=== PATIENT | male | born 1960 | race Caucasian/White ===

== ENCOUNTER → 2018-09-25 | Outpatient (CLI) | payer BC ==
[~2018-09-25] VITALS: Ht 177.8 cm; Wt 95.3 kg
[~2018-09-25] MED LIST: AMARYL1 MG PO; FENOFIBRATE160 MG PO; METFORMIN HCL500 MG PO; TRULICITY1.5 MG/0.5 SUBQ; ZOCOR20 MG PO
[2018-09-25 13:37] VITALS: BP 137/72
--- NOTE | 2018-09-25 13:41 | NUR ---
Pain Clinic Assessment: 1. History of Osteoarthritis: History of Rheumatoid Arthritis: 2. Height: 5 ft. 10 in. 177.8 cm. Weight: 210.0 lb. oz. 95.256 kg. Patient's BMI: 30.1 3. Vital Signs: BP: 137/72 Pulse: 88 Resp: 15 Temp: 02 Sat: 95 ECG Mon: 4. Pain Intensity: 5 5. Fall Risk: Dizziness: N Needs help standing or walking: N Fallen in the last 3 months: N Fall risk comments: 6. Patient on Blood Thinner: None 7. History of Hypertension: N 8. Opioid Therapy greater than 6 weeks: N Opiate Contract Signed: 9. Risk Assessment Tool Provided: 10. Functional Assessment Tool: 11. Recreational Drug Use: Never Drug Type: Tobacco Use: Former Smoker Tobacco Type: Amount or Packs/day: How Many Years: Alcohol Use: Yes Frequency: Weekly Quant: 3 A WEEK
--- NOTE | 2018-10-02 07:34 | HPC ---
[facility] [place] [address] PAIN MANAGEMENT CONSULTATION Name: MELISSA VANCE [facility] #[facility] [id number] Admission: 09/25/18 ������������������ Attend Phys: Varun Brown DO Discharge: ������������������ Date of : 60 Report #: [id number] THIS REPORT FOR: //name// CC: FAM unknown ABHISHEK Brown DATE OF SERVICE: 09/25/2018 CHIEF COMPLAINT: Neck pain, right upper extremity pain with paresthesias. HISTORY OF PRESENT ILLNESS: As you know, the patient is a pleasant 58-year-old male who reports a longstanding history of neck pain, right upper extremity pain with paresthesias. He states his pain began somewhere in 01/2018. 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 He notes pain intensified with painting and certain manual labor activities. The patient originally "just put up with." Unfortunately, his symptoms continued to progress. He sought evaluation through his PCP who referred the patient to Physical Therapy. He has done 6 weeks of physical therapy reporting minimal improvement in symptoms. Due to lack of improvement with conservative measures, the patient was subsequently referred for MRI of the cervical spine, which showed significant changes at multiple levels with [id number] central canal stenosis present at C3-C4, C5-C6, and C6-C7 with grade A spinal stenosis at the C6-C7 level causing impingement of the nerve roots noted on imaging. Due to these findings, the patient was then referred to our clinic to discuss treatment options. The patient indicates pain is periodic. He describes the pain as sharp with numbness and tingling radiating into the fourth and fifth digits on the right hand as well as the medial aspect of the right hand. He states pain today at level of 5/10, daily average anywhere from 2-5/10, worst pain has been is 7/10. The patient states that "sleeping the wrong way," bending the wrong way or lifting exacerbates symptoms; rest, relaxation tends to improve pain. He has been referred to our service to discuss treatment options for suspected cervical radiculopathy secondary to multilevel cervical spinal stenosis. PAST MEDICAL HISTORY: 1. Diabetes mellitus type 2. 2. Chronic colon problems. 3. Degenerative joint disease. 4. Osteoarthritis. 5. Dyslipidemia. PAST SURGICAL HISTORY: [facility] [address] [place] [address] PAIN MANAGEMENT CONSULTATION Name: MELISSA VANCE Room #: REG [facility] Jaime#: [id number] Admission: 09/25/18 ������������������ Attend Phys: Varun Brown DO Discharge: ������������������ Date of : 60 Report #: [id number] 1. Abdominal herniorrhaphy. 2. Lumbar spine surgery. SOCIAL HISTORY: The patient denies tobacco, IV or illicit drug use. Admits to approximately 3 alcoholic beverages per week. He is employed as a industrial spray painter and maintenance professional. He is working, not receiving workmen's compensation nor is he trying to obtain disability benefits. He is not in litigation in regards to pain. He is unaccompanied at today's visit. REVIEW OF SYSTEMS: Positive for frequent and recurrent coughs, nocturia, sexual difficulty, non-insulin dependent diabetes, neck pain, right upper extremity pain and paresthesias, dyslipidemia. All other review of systems negative per 12-point review of systems other than those listed in history of present illness. Pain impact score 7/70 indicating mild interference of daily activities secondary to pain. ALLERGIES: PENICILLIN. CURRENT MEDICATIONS: Trulicity 1.5 mg subcutaneous once a week, fenofibrate 160 mg once a day, Amaryl 1 mg twice a day, simvastatin 20 mg once a day, metformin 500 mg twice a day. IMAGING: MRI of the cervical spine obtained on 08/22/2018 shows C2-C3 with left-sided hypertrophic degenerative changes, small posterior disk bulge with mild effacement of the ventral thecal sac, AP measuring of the canal 11 mm, left-sided neural foraminal stenosis. C3-C4 disk space narrowing, circumferential disk bulge, effacement of the ventral thecal sac, dimension of the central canal moderately reduced to 8 mm, mild bilateral facet hypertrophy, left-sided neural foraminal narrowing effacing the exiting left C4 nerve root. C4-C5, small disk protrusion, AP diameter canal 9 mm, mild bilateral facet arthropathy, no neural foraminal stenoses. C5-C6, circumferential disk bulge paracentric to the right, mild flattening of the spinal cord, AP diameter of the canal now measuring 8 mm, bilateral neural foraminal narrowing, effacement of the C6 nerve roots right greater than left, mild hypertrophy of the facet joints. C6-C7, circumferential disk bulge, posterior disk osteophyte complex bulging paracentric to right, flattening of the cord, narrowing of the central canal to 7.5 mm, severe bilateral neural foraminal narrowing right greater than left with effacement of the C7 nerve root. C7-T1, minimal shallow disk bulge, effacement of the ventral thecal sac, bilateral neural foraminal narrowing slightly greater on the right, very subtle effacement of the C8 nerve roots. Upper thoracic canal appears unremarkable. PHYSICAL EXAMINATION: VITAL SIGNS: Blood pressure 137/72, pulse 88, respiratory rate [address] [address] PAIN MANAGEMENT CONSULTATION Name: MELISSA VANCE Room #: REG [facility]#: [id number] Admission: 09/25/18 ������������������ Attend Phys: Varun Brown DO Discharge: ������������������ Date of : 60 Report #: [id number] unlabored. The patient is 95% on room air. Height 5 feet 10 inches tall, weight 210 pounds, BMI calculated 30.1. GENERAL: Well-developed, well-nourished, well-hydrated 58-year-old male appearing his stated age. He is in no acute distress, awake, alert and oriented x 3. Current pain score 5/10. HEENT: Normocephalic, atraumatic. Pupils equal, round, reactive to light. Extraocular muscles are intact. Sclerae nonicteric without injection. NEUROLOGIC: Cranial nerves 2 through 12 grossly intact. Speech is fluent. The patient deemed an excellent historian. LUNGS: Clear. No wheeze, rhonchi or rales. CARDIOVASCULAR: Regular. No appreciable gallop, no rub. ABDOMEN: Soft, nontender. EXTREMITIES: Show no clubbing, no cyanosis, no edema. MUSCULOSKELETAL: Upper extremity strength appears equal and symmetrical 5/5. He is intact to light touch from C5 through T1 dermatomes. Deep tendon reflexes are 2+/4 at biceps, brachioradialis and triceps. Muscle bulk and tone equal and symmetrical in upper extremities. Spurling's test positive right, negative left. Cervical provocation testing is met with increasing pain with rotation, lateral flexion to the right with mild restriction of motion secondary to pain. ASSESSMENT: 1. Cervical radiculopathy. 2. Severe spinal stenosis of lumbar spine. 3. Displacement of a cervical intervertebral disk with radiculopathy. 4. Cervical spondylosis with radiculopathy. 4. Cervical degeneration. 5. Chronic intractable pain. PLAN: 1. Based on today's physical exam and history the patient provides, the description the patient uses in regards to pain as well as location of symptoms and the provocating factors, likely source of the patient's pain is cervical radiculopathy. We have discussed with the patient treatment options for cervical radicular symptoms in relationship to his recent MRI findings showing significant central canal stenosis and multilevel neural foraminal narrowing. Following was discussed with the patient today. We discussed physical therapy, stretching exercises and traction techniques as a treatment option. I understand the patient has had physical therapy for 6 weeks, but apparently they have had no traction during the physical therapy, so this could be reinitiated. We discussed medication management, adding neuropathic pain medications to address pain concerns. We also discussed cervical epidural injections under fluoroscopic guidance as a treatment option. We discussed ultimately the surgical decompression of the central canal and neural foramina as necessary. After reviewing the risks and benefits of all the proposed treatment options, the patient has requested to begin with a cervical [address] [address] PAIN MANAGEMENT CONSULTATION Name: RAJIVMELISSA Room #: REG JERSON Jaime#: [id number] Admission: 09/25/18 ������������������ Attend Phys: Varun Brown DO Discharge: ������������������ Date of : 60 Report #: [id number] epidural injection. 2. The patient has requested that he have a visit to return to undergo the cervical epidural injection in the very near future. He is unable to undergo the procedure today due to scheduling conflicts. He does wish to return to undergo the first in the series of cervical epidural injections next week. He has planned to take some time off after the injection to recover from the procedure. We have scheduled him back to our clinic to undergo this first in the series of cervical epidural injections at his requested time. 3. We made no changes in the patient's medication management at this visit. We did discuss possibility of adding neuropathic pain medications and a consistent nonsteroidal anti-inflammatory. The patient states at this point he is not interested in initiating any medications if he can avoid doing so. We will discuss this at followup visit and any future visits based on efficacy with the cervical epidural injection. 4. We will see the patient back in followup visit at his next appointment to undergo cervical epidural injection under fluoroscopic guidance to address cervical radicular symptoms. 5. We wish to thank Dr. Barrios for the referral of the patient to this clinic. We will keep you apprised of his response to treatment as we address his cervical radicular symptoms. Again, we wish to thank you for the opportunity to see this patient in consultation. ��������������������������������������������� <ELECTRONICALLY SIGNED> ���������������������������������������� By: Varun Brown DO ��������������������������������������������� 10/02/18 0734 [id number] 1050 Varun Brown DO /nt
== END ==
LOC: PAIN 07:00
DX: M50.11 Cervical disc disorder with radiculopathy, high cervical region (principal); M47.22 Other spondylosis with radiculopathy, cervical region; E11.9 Type 2 diabetes mellitus without complications; M19.90 Unspecified osteoarthritis, unspecified site; E78.5 Hyperlipidemia, unspecified; Z88.0 Allergy status to penicillin; Z79.899 Other long term (current) drug therapy; Z79.84 Long term (current) use of oral hypoglycemic drugs

== ENCOUNTER → 2018-10-02 | Outpatient (CLI) | payer BC ==
[~2018-10-02] VITALS: Ht 177.8 cm; Wt 96.4 kg
[2018-10-02 13:54] VITALS: BP 122/72
--- NOTE | 2018-10-02 14:04 | NUR ---
Pain Clinic Assessment: 1. History of Osteoarthritis: Not Applicable History of Rheumatoid Arthritis: Not Applicable 2. Height: 5 ft. 10 in. 177.8 cm. Weight: 212.6 lb. oz. 96.435 kg. Patient's BMI: 30.5 3. Vital Signs: BP: 122/72 Pulse: 88 Resp: 16 Temp: 02 Sat: 98 ECG Mon: 4. Pain Intensity: 2 5. Fall Risk: Dizziness: N Needs help standing or walking: N Fallen in the last 3 months: N Fall risk comments: 6. Patient on Blood Thinner: None 7. History of Hypertension: N 8. Opioid Therapy greater than 6 weeks: N Opiate Contract Signed: 9. Risk Assessment Tool Provided: 10. Functional Assessment Tool: 11. Recreational Drug Use: Never Drug Type: Tobacco Use: Former Smoker Tobacco Type: Amount or Packs/day: How Many Years: Alcohol Use: Yes Frequency: Weekly Quant: 3
--- NOTE | 2018-10-05 07:41 | HPC ---
[facility] [place] [address] PAIN MANAGEMENT CONSULTATION Name: MELISSA VANCE Room #: REG [facility].#: [id number] Admission: 10/02/18 ������������������ Attend Phys: Varun Brown DO Discharge: ������������������ Date of : 60 Report #: [id number] THIS REPORT FOR: //name// CC: FAM unknown Jelani Brown DATE OF SERVICE: 10/02/2018 CHIEF COMPLAINT: Neck pain, right upper extremity pain with paresthesias. HISTORY OF PRESENT ILLNESS: As you know, the patient is a very pleasant 58-year-old male who reports longstanding history of neck pain, right upper extremity pain with paresthesias. The patient states pain began somewhere in 01/2018. 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 He was referred to our service to discuss treatment options for cervical radiculopathy. He was seen in consultation 09/25/2018 and established today's appointment to undergo cervical epidural injection to address cervical radiculopathy secondary to severe cervical spinal stenosis that is multifactorial in origin secondary to displacement of a cervical intervertebral disk and facet changes of the cervical spine. He returns today in followup visit to undergo the first in a series of cervical epidural injections to address cervical radiculopathy. ALLERGIES: PENICILLIN. CURRENT MEDICATIONS: Trulicity, fenofibrate, Amaryl, simvastatin, metformin. SOCIAL HISTORY: The patient denies tobacco, IV or illicit drug use. Admits to 3 alcoholic beverages per week. 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 IMAGING: There is no new imaging available. PHYSICAL EXAMINATION: VITAL SIGNS: Blood pressure 122/72, pulse 88, respiratory rate 16 and unlabored. The patient is 98% on room air. Height 5 feet 10 inches tall, weight 212.6 pounds, BMI calculated 30.5. GENERAL: Well-developed, well-nourished, well-hydrated 58-year-old male appearing stated age, placing current pain score around 2/10. HEENT: Normocephalic, atraumatic. Pupils equal, round, reactive to light. Extraocular muscles are intact. Sclerae nonicteric without injection. NEUROLOGIC: Cranial nerves 2-12 grossly intact. Speech fluent. The patient deemed an excellent historian. [address] [address] PAIN MANAGEMENT CONSULTATION Name: MELISSA VANCE Room #: REG CLI [facility]#: [id number] Admission: 10/02/18 ������������������ Attend Phys: Varun Brown DO Discharge: ������������������ Date of : 60 Report #: [id number] EXTREMITIES: Show no clubbing, no cyanosis, no edema. MUSCULOSKELETAL: Upper extremity strength is symmetrical 5/5, intact to light touch from C5 to T1 dermatomes. Deep tendon reflexes are 2+/4 at biceps, brachialis and triceps. Spurling's test positive on the right. ASSESSMENT: 1. Cervical radiculopathy. 2. Severe spinal stenosis of the cervical spine. 3. Displacement of cervical intervertebral disk with radiculopathy. 4. Cervical spondylosis with radiculopathy. 5. Cervical degeneration. 6. Chronic intractable pain. PLAN: 1. The patient returns today in followup visit to undergo the first in the series of cervical epidural injections under fluoroscopic guidance. He was able to clear his schedule for the rest of today and to be able to do light activities tomorrow to recover from today's cervical injection. We have advised the patient of the risks and benefits of this procedure. These risks include but are not necessarily limited to bleeding, bruising, infection, worsening pain, no relief of pain, also risk of temporary or permanent muscle weakness, temporary or permanent nerve damage, possible paralysis, post-dural puncture headache and . The patient states he understood and wished to proceed. 2. No medication changes made at today's visit. The patient will continue current medical therapy as previously prescribed. 3. We will see the patient back in followup visit in 31 days. At that time, review the efficacy of today's epidural injection and determine if next in the series of cervical epidural injections would be recommended. ��������������������������������������������� <ELECTRONICALLY SIGNED> ���������������������������������������� By: Varun Brown DO ��������������������������������������������� 10/05/18 0741 0856 25 Varun Brown DO /nt
--- NOTE | 2018-10-05 07:41 | P ---
[facility] [place] [address] PROCEDURE REPORT Name: MELISSA VANCE Room #: REG [facility]#: [id number] Admission: 10/02/18 ������������������ Attend Phys: Varun Brown DO Discharge: ������������������ Date of : 60 Report #: [id number] THIS REPORT FOR: //name// CC: FAM unknown Jelani Brown DATE OF SERVICE: 10/02/2018 DESCRIPTION OF PROCEDURE: C7-T1 cervical epidural steroid injection under fluoroscopic guidance. This is the first procedure of the first series that the patient is undergoing. After obtaining written consent, the patient was taken back to the fluoroscopy suite and placed in a prone position with separate pillows under chest and forehead to decrease cervical lordosis. The skin overlying the cervical area was prepped and draped in an aseptic fashion. The C7-T1 vertebral interspace was identified by AP fluoroscopy. The skin and subcutaneous tissue overlying the target site of injection was anesthetized using 3 mL of 1% lidocaine. A 20-gauge 3-1/2-inch Tuohy needle was advanced under fluoroscopic guidance toward the epidural space using a midline approach. The epidural space was identified using a loss of resistance to air technique. After negative aspiration for heme or cerebrospinal fluid, a total of 1 mL of Omnipaque was injected. A cervical epidurogram was confirmed using AP and oblique fluoroscopy. After negative aspiration for heme or cerebrospinal fluid, 5 mL of a solution containing 2 mL 40 mg per mL, 80 mg total triamcinolone, 3 mL of lidocaine 1% was injected in increments. Contrast spread was noted from posterior epidural space. The needle was then retracted approximately care home and the needle track was flushed with 1 mL of 1% lidocaine. There were no apparent new sensory deficits in the upper extremities present following the procedure. A sterile bandage was placed over the injection site. The heart rate, pulse oximetry and blood pressure were continuously monitored after the procedure. There were no apparent complications. The patient tolerated the procedure well and was carefully escorted in the recovery room in stable condition. After meeting discharge criteria, the patient was discharged home. ��������������������������������������������� <ELECTRONICALLY SIGNED> ���������������������������������������� By: Varun Brown DO ��������������������������������������������� 10/05/18 0741 [id number] 2033 Varun Brown DO /nt
== END | disposition home or self-care (01) ==
LOC: PAIN 06:59
DX: M50.10 Cervical disc disorder with radiculopathy, unspecified cervical region (principal); M48.02 Spinal stenosis, cervical region; M47.22 Other spondylosis with radiculopathy, cervical region; G89.29 Other chronic pain; Z88.0 Allergy status to penicillin; Z79.899 Other long term (current) drug therapy; Z87.891 Personal history of nicotine dependence; Z98.890 Other specified postprocedural states

== ENCOUNTER → 2019-05-21 | Outpatient (CLI) | payer BC ==
[~2019-05-21] VITALS: Ht 177.8 cm; Wt 96.3 kg
[2019-05-21 09:55] VITALS: BP 135/85
--- NOTE | 2019-05-21 10:10 | NUR ---
Pain Clinic Assessment: 1. History of Osteoarthritis: Not Applicable History of Rheumatoid Arthritis: Not Applicable 2. Height: 5 ft. 10 in. 177.8 cm. Weight: 212.2 lb. oz. 96.253 kg. Patient's BMI: 30.4 3. Vital Signs: BP: 135/85 Pulse: 83 Resp: 16 Temp: 02 Sat: 97 ECG Mon: 4. Pain Intensity: 3 5. Fall Risk: Dizziness: N Needs help standing or walking: N Fallen in the last 3 months: N Fall risk comments: 6. Patient on Blood Thinner: None 7. History of Hypertension: N 8. Opioid Therapy greater than 6 weeks: N Opiate Contract Signed: 9. Risk Assessment Tool Provided: LOW-0 10. Functional Assessment Tool: 11. Recreational Drug Use: Never Drug Type: Tobacco Use: Former Smoker Tobacco Type: Amount or Packs/day: How Many Years: Alcohol Use: Yes Frequency: Quant:
--- NOTE | 2019-05-28 08:01 | HPC ---
[facility] [address] [place] [address] PAIN MANAGEMENT CONSULTATION Name: MELISSA VANCE Room #: REG [facility].#: [id number] Admission: 05/21/19 Attend Phys: Varun Brown DO Discharge: Date of : 60 Report #: [id number] THIS REPORT FOR: //name// CC: FAM physician/PCP FAM unknown JELANI Brown DATE OF SERVICE: 05/21/2019 REFERRING PHYSICIAN: Jelani Barrios M.D. CHIEF COMPLAINT: Neck pain, upper extremity pain with paresthesias, left shoulder pain. HISTORY OF PRESENT ILLNESS: As you know, the patient is a very pleasant 58-year-old male, returning in followup visit to undergo next in the series of cervical epidural injections under fluoroscopic guidance. He is reporting pain score today 3/10. States his pain is tingling, numbness and aching in sensation. Pain is exacerbated with moving his neck, extension of the cervical spine, rotation of the cervical spine and using his arms over his head. He is also experiencing increasing right shoulder pain and left shoulder pain. He returns today to undergo cervical epidural injection under fluoroscopic guidance in hopes of improving pain as we have seen with the previous epidural injection reporting up to 50% improvement in overall symptoms. The patient denies any new injury or trauma that may have led to symptom recurrence. ALLERGIES: PENICILLIN. CURRENT MEDICATIONS: Trulicity, fenofibrate, Amaryl, simvastatin, metformin. SOCIAL HISTORY: The patient denies tobacco, IV or illicit drug use. Admits to three alcoholic beverages per week. 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 IMAGING: No new imaging available. PHYSICAL EXAMINATION: VITAL SIGNS: Blood pressure 135/85, pulse is 83, respiratory rate 16 and unlabored. The patient is 97% on room air. Height 5 feet 10 inches tall, weight 212.2 pounds, BMI calculated 30.4. GENERAL: Well-developed, well-nourished, well-hydrated 58-year-old male appearing stated age, placing current pain score 3/10. HEENT: Normocephalic, atraumatic. Pupils equal, round, reactive to light. EXTREMITIES: Show no clubbing, no cyanosis, no edema. [address] [address] PAIN MANAGEMENT CONSULTATION Name: MELISSA VANCE Room #: REG [facility].#: [id number] Admission: 05/21/19 Attend Phys: Varun Brown DO Discharge: Date of : 60 Report #: [id number] MUSCULOSKELETAL: Upper extremity strength remains symmetrical 5/5. There is giveaway strength noted with abduction of the left shoulder due to ongoing pain. There is also noted positive for rotator cuff injury signs with provocation testing. The patient will need to seek evaluation for this issue. Deep tendon reflexes 2+/4, biceps, brachialis and triceps. Spurling's test positive on the right. ASSESSMENT: 1. Symptomatic cervical radiculopathy. 2. Spinal stenosis of the cervical spine. 3. Displacement of cervical intervertebral disk with radiculopathy. 4. Cervical spondylosis with radiculopathy. 5. Left rotator cuff injury. 6. Osteoarthritis of the bilateral shoulders. 7. Cervical degeneration. 8. Chronic intractable pain. PLAN: 1. The patient has returned today in followup visit indicating increasing left shoulder pain with mobility. This appears to be a rotator cuff injury. The patient has had injections in the past done in the shoulder with some benefit. I believe further evaluation will be necessary. We recommend orthopedic consultation to address the shoulder issues. Certainly, we can look towards intra-articular shoulder injections if the patient wishes to do so, but this cannot be performed today. We would have to have the patient return for a followup appointment in a couple of weeks if he wishes to undergo such a procedure. The patient will consider his options. Given the length of time the patient has had these symptoms, I believe this rotator cuff injury is chronic in nature. I do not feel that there is an acute finding, though he has definitive weakness with testing and further evaluation with Orthopedics would be recommended. 2. In regards to the patient's cervical radicular symptoms, he reported improvement in symptoms with a cervical epidural injection up to 50%. Unfortunately, symptoms have begun to return. He returns to undergo next in the series of cervical epidural injections. We have advised him of the risks and benefits of the procedure, he states he understood and wished to proceed. 3. No medication changes made at today's visit. The patient will continue current medical therapy as previously prescribed. 4. We will see the patient back in followup visit on an as needed basis for next in the series of cervical epidural injections or to undergo intra-articular shoulder injection if he wishes to trial that type of option. DESCRIPTION OF PROCEDURE: C7-T1 cervical epidural steroid injection under fluoroscopic guidance. This is the second procedure of the first series that the patient is undergoing. [address] [address] PAIN MANAGEMENT CONSULTATION Name: MELISSA VANCE Room #: REG [facility] Jaime#: [id number] Admission: 05/21/19 Attend Phys: Varun Brown DO Discharge: Date of : 60 Report #: [id number] After obtaining written consent, the patient was taken back to the fluoroscopy suite and placed in a prone position with separate pillows under chest and forehead to decrease cervical lordosis. The skin overlying the cervical area was prepped and draped in an aseptic fashion. The C7-T1 vertebral interspace was identified by AP fluoroscopy. The skin and subcutaneous tissue overlying the target site of injection was anesthetized using 3 mL of 1% lidocaine. A 20-gauge 3-1/2 inch Tuohy needle was advanced under fluoroscopic guidance toward the epidural space using a midline approach. The epidural space was identified using a loss of resistance to air technique. After negative aspiration for heme or cerebrospinal fluid, a total of 1 mL of Omnipaque was injected. A cervical epidurogram was confirmed using AP and oblique fluoroscopy. After negative aspiration for heme or cerebrospinal fluid, 5 mL of a solution containing 2 mL 40 mg/mL, 80 mg total triamcinolone along with 3 mL of preservative-free 1% lidocaine was injected in increments. Contrast spread was noted from posterior epidural space. The needle was then retracted approximately retirement and the needle track was flushed with 1 mL of 1% lidocaine. There were no new sensory deficits in the upper extremities present following the procedure. A sterile bandage was placed over the injection site. The heart rate, pulse oximetry and blood pressure were continuously monitored after the procedure. There were no apparent complications. The patient tolerated the procedure well and was carefully escorted in the recovery room in stable condition. After meeting discharge criteria, the patient was discharged home. <ELECTRONICALLY SIGNED> By: DO Kody Ruiz/22/19 0801 [id number] Varun Brown DO /nt
== END | disposition home or self-care (01) ==
LOC: PAIN 06:53
DX: M50.10 Cervical disc disorder with radiculopathy, unspecified cervical region (principal); M48.02 Spinal stenosis, cervical region; M72.2 Plantar fascial fibromatosis; M19.011 Primary osteoarthritis, right shoulder; M19.012 Primary osteoarthritis, left shoulder; G89.29 Other chronic pain; Z98.890 Other specified postprocedural states; Z79.899 Other long term (current) drug therapy; Z88.0 Allergy status to penicillin